=== PATIENT | female | born 1985 | race African-American/Black ===

== ENCOUNTER 2017-05-30 09:26 | Emergency (ER) | payer SELFPAY ==
[2017-05-30] MEDS ORDERED: Ketorolac Tromethamine 60 MG/2 ML VIAL ONE (11:57)
--- NOTE | 2017-05-30 12:37 | CT ---
CT CERVICAL SPINE: HISTORY: Injury with neck pain. TECHNIQUE: Multiple axial tomograms obtained through the cervical spine with multiplanar reconstruction. FINDINGS: the cervical vertebrae maintain normal height and alignment. The disk spaces are maintained. No ulices dence of cervical spine fracture identified. IMPRESSION: No evidence of cervical spine fracture. POS: [facility]
== END 2017-05-30 12:38 | disposition home or self-care (01) ==
LOC: ERS 09:26
DX: S13.4XXA Sprain of ligaments of cervical spine, initial encounter (principal); X58.XXXA Exposure to other specified factors, initial encounter
CPT/HCPCS: 72125; 96372; J1885

== ENCOUNTER 2018-03-17 14:14 | Emergency (ER) | payer OTHER, SELFPAY ==
[2018-03-17] MEDS ORDERED: HYDROcodone/Acetaminophen 10/325 mg Tablet ONE (15:15)
--- NOTE | 2018-03-17 15:22 | RAD ---
THREE VIEWS RIGHT WRIST: DATE: 03/17/2018. HISTORY: Trauma. The patient fell onto concrete on right side. FINDINGS: There is a lucency seen at the lateral aspect waist of the scaphoid bone probably related to the trab ecular pattern. This does not appear to extend into the cortex and is not seen on the opposing views . No obvious fracture is seen, and there is no dislocation. There is slight ulnar minus configurati on. IMPRESSION: No acute fracture visualized. However, if there is clinical concern for a fracture of the navicular bone, followup views of the wrist are recommended in 4-7 days after conservative management to exclud e a radiographically occult fracture. POS: [facility]
--- NOTE | 2018-03-17 15:23 | RAD ---
THREE VIEWS RIGHT SHOULDER: DATE: 03/17/2018. HISTORY: Trauma. The patient fell onto concrete on the right side. FINDINGS: Coracoclavicular and acromioclavicular distances are within normal limits. No fracture or dislocati on is seen involving the right shoulder. No other findings. IMPRESSION: No acute osseous abnormality. POS: [facility]
--- NOTE | 2018-03-17 15:24 | RAD ---
FOUR VIEWS RIGHT ELBOW: DATE: 03/17/2018. HISTORY: The patient fell and hit elbow on concrete. Right-sided pain. FINDINGS: There is no evidence of a fracture, dislocation, or other osseous abnormality involving the right elb ow. No obvious joint effusion is seen. IMPRESSION: No acute osseous abnormality. POS: [facility]
== END 2018-03-17 16:08 | disposition home or self-care (01) ==
LOC: ERS 14:14
DX: S50.01XA Contusion of right elbow, initial encounter (principal); V00.181A Fall from other rolling-type pedestrian conveyance, initial encounter